=== PATIENT | male | born 1980 | race Caucasian/White ===

== ENCOUNTER 2024-10-16 10:51 | Emergency (ER) | payer OTHER, SELFPAY ==
[2024-10-16 10:54] VITALS: BP 160/101
--- NOTE | 2024-10-16 12:09 | ED.GENMED ---
History of Present Illness
<DEXTER Winn - Last Filed: 10/16/24 17:23>
General
Chief Complaint: Skin Problem
Source: patient
Exam Limitations: none
Time Seen by Provider: 10/16/24 11:53
Nursing documentation reviewed up to this point in time: agreed with
History of Present Illness
History of Present Illness:
44-year-old male presents to the ER for evaluation of tenderness and painful lump to buttocks. He reports he noticed this on Wednesday 2 nights ago while coming back from a flight from [facility]. He reports area felt sore at that time and then on
Wednesday morning he noticed some itching to the rectal area. He denies any constipation or history of hemorrhoids.
He denies any fevers. Presently he complains of soreness to the area denies any itching or discharge. He did move his bowels yesterday.
Review of Systems
<DEXTER Winn - Last Filed: 10/16/24 17:23>
Review of Systems
Allergies reviewed?: Yes
All Other Systems: ROS reviewed and negative except as documented in HPI and ROS
Constitutional: Reports no symptoms; Denies fever, fatigue or chills
Respiratory: Reports no symptoms
Cardiac: Reports no symptoms
ABD/GI: Reports other (soreness to rectum )
Skin: Reports no symptoms
Psychiatric: Reports no symptoms
Phy Exam
<DEXTER Winn - Last Filed: 10/16/24 17:23>
General Physical Exam
General Presentation: no apparent distress
General age: appears stated age
General Skin: warm and dry
General Habitus: normal
General Mental: alert
General Hydration: appears well hydrated
Gastrointestinal Exam
Gastrointestinal Exam: other (+ External hemorrhoids hemorrhoids do not appear thrombosed; no abscess)
Neurological Exam
Neurological Exam: alert and oriented x3
Musculoskeletal Exam
Musculoskeletal Exam: full ROM
Skin Exam
Skin Exam: normal color and warm/dry
Psychiatric Exam
Psychiatric Exam: normal mood/affect
Course
<DEXTER Winn - Last Filed: 10/16/24 17:23>
Vital Signs
Initial and Last Documented VS:
Initial Vital Signs
Temp Pulse Resp BP Pulse Ox
99.0 F 86 18 160/101 99
10/16/24 10:54 10/16/24 10:54 10/16/24 10:54 10/16/24 10:54 10/16/24 10:54
Last Documented Vital Signs
Temp Pulse Resp BP Pulse Ox
99.0 F 84 16 140/87 98
10/16/24 10:54 10/16/24 12:33 10/16/24 12:33 10/16/24 12:33 10/16/24 12:33
Cork Insulator Helper consulted with Physician
Cork Insulator Helper consulted with physician?: Yes
Name of Physician Consulted: DR Johns who eval pt
<Bryant Johns DO - Last Filed: 10/16/24 12:29>
Vital Signs
Initial and Last Documented VS:
Initial Vital Signs
Temp Pulse Resp BP Pulse Ox
99.0 F 86 18 160/101 99
10/16/24 10:54 10/16/24 10:54 10/16/24 10:54 10/16/24 10:54 10/16/24 10:54
Last Documented Vital Signs
Temp Pulse Resp BP Pulse Ox
99.0 F 84 16 140/87 98
10/16/24 10:54 10/16/24 12:33 10/16/24 12:33 10/16/24 12:33 10/16/24 12:33
<DEXTER Winn - Last Filed: 10/16/24 17:23>
MDM/Problems Addressed
Differential Diagnosis Includes:
Not limited to abscess, hemorrhoid
MDM/Problems Addressed:
Findings consistent with hemorrhoids will DC with Anusol and close outpatient follow-up with colorectal surgery discussed Colace.
<DEXTER Winn - Last Filed: 10/16/24 17:23>
*Critical Care Note
Total Time (30-74mins, 75-104mins- exclusive of procedures): Not Applicable
ED Attending Note
<DEXTER Winn - Last Filed: 10/16/24 17:23>
-
Portions of this chart may have been created with voice recognition software.� Occasional wrong word or��sound alike� substitutions may have occurred due to the inherent limitations of voice recognition software.
<Bryant Johns DO - Last Filed: 10/16/24 12:29>
ED Attending Note
Patient seen and examined by attending physician: Yes
I performed the substantive portion of visit, reviewed & personally made and approve the management plan that is documented in note by myself or JOSUÉ.: Yes
ED Attending Note:
Patient appears well. No fevers. Hemorrhoids on exam. No focal tenderness or thrombosed hemorrhoid. No signs of abscess. Will refer to colorectal
Discharge Plan
Departure
Patient Disposition: Home (Routine Discharge)
Date of Disposition: 10/16/24
Time of Disposition: 12:31
Patient with high blood pressure during this ER visit?: Yes
Condition: Fair
Covid-19: Not Applicable
Discharge Problem:
External hemorrhoids
Instructions: Hemorrhoids ED, BLOOD PRESSURE
Prescriptions:
New
hydrocortisone [Anusol-HC] 2.5 % cream with perineal applicator
1 applic AL DAILY Qty: 30 0RF
Referrals:
Kam Cleary MD [Active] -
NONE,* [Family Provider] -
Activity Restrictions/Additional Instructions:
As discussed please use medication that was sent to pharmacy for external hemorrhoids.
In addition please use [id number] stool softener such as Colace(avoid straining)
Follow-up with colorectal surgeon for reevaluation and possible treatment of your hemorrhoids. Please call today to make an appointment as soon as possible return if any worsening of symptoms.
Interventions
Interventions:
*Risk Screen - Suicide Last Done: 10/16/24 10:54
*General Assessment Last Done: 10/16/24 10:54
*Neglect/Abuse Screening Last Done: 10/16/24 10:54
*ED- Fall Risk Assessment Last Done: 10/16/24 12:36
*ED COVID-19 Vaccine History Last Done: 10/16/24 12:33
*Nursing Disposition Last Done: 10/16/24 12:36
ED-Skin Assessment Last Done: 10/16/24 12:33
Discharge Date and Time
Discharge Date/Time: 10/16/24 12:42
Print Language: WOLOF
--- NOTE | 2024-10-16 12:11 | EDRN ---
Danii Solano INFORMATICA ARCHITECT currently at the pts bedside
[2024-10-16 12:33] VITALS: BP 140/87; BMI 25.8
== END 2024-10-16 12:42 | disposition home or self-care (01) ==
LOC: EMR 10:51
PROVIDERS: EMERGENCY PHYSICIAN Emergency Medicine
DX: K64.4 Residual hemorrhoidal skin tags (principal); R03.0 Elevated blood-pressure reading, without diagnosis of hypertension
CPT/HCPCS: 99282

== ENCOUNTER 2025-03-02 17:49 | Emergency (ER) | payer OTHER, SELFPAY ==
[2025-03-02 17:57] VITALS: BP 149/94
[2025-03-02 20:56] VITALS: BMI 33.9
[2025-03-02 20:57] VITALS: BP 158/96
[2025-03-02] MEDS: TYLENOL 1000 MG PO (21:59)
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
== END 2025-03-02 23:42 | disposition home or self-care (01) ==
LOC: EMR 17:49
PROVIDERS: EMERGENCY PHYSICIAN Emergency Medicine
DX: S09.93XA Unspecified injury of face, initial encounter (principal); M54.2 Cervicalgia; S00.11XA Contusion of right eyelid and periocular area, initial encounter; R42 Dizziness and giddiness; R51.9 Headache, unspecified; Y04.2XXA Assault by strike against or bumped into by another person, initial encounter; Y93.89 Activity, other specified; Y92.89 Other specified places as the place of occurrence of the external cause; Y99.0 Civilian activity done for income or pay
CPT/HCPCS: 99284; 70200; 70450; 70486; 72125